=== PATIENT | female | born 1950 | race Two or more races ===

== ENCOUNTER 2023-12-04 13:04 | Emergency (ER) | payer OTHER ==
[~2023-12-04] VITALS: Ht 160 cm; Wt 78.2 kg
[2023-12-04 13:34] VITALS: BP 135/57; PULSE 71; RESP 16; O2SAT 94
[2023-12-04] MEDS ORDERED: TELM80TA PO (13:55)
== END 2023-12-04 14:19 | disposition home or self-care (01) ==
LOC: ER 13:04
DX: I10 Essential (primary) hypertension (principal); Z76.0 Encounter for issue of repeat prescription

== ENCOUNTER 2024-04-04 11:15 | Emergency (ER) | payer OTHER ==
[~2024-04-04] VITALS: Ht 154.9 cm; Wt 76.6 kg
[~2024-04-04 11:15] MED LIST: TELM80TA PO
--- NOTE | 2024-04-04 12:27 | ED.PDOC ---
Nisat. trauma (HPI) HPI Comments 73 y.o female presents to the ED for a chief complaint of left hand, head and neck pain s/p fall last night. Patient bent over to picking something off the ground, lost her balance and fell face forward. Patient reports she lost consciousness for a couple of seconds and woke up with left hand pain. Patient is unsure how she landed but did have nausea after getting herself back up. Patient has limited ROM to left hand and complains of soreness to her head radiating to neck. No vomiting, chest pain, SOB, dizziness, lightheadedness reported. Chief Complaint: Fall Injury Time Seen by MD: 12:20 Primary Care Provider: ? Reviewed notes: Nurses Notes, Medications, Allergies Allergies: Coded Allergies: NO KNOWN ALLERGIES (Unverified , 04/04/24) Home Meds Active Scripts Telmisartan (Micardis) 80 Mg Tab, 80 MG PO DAILY, #30 TAB Prov:CHADLUZ ELENA LUCERO 12/04/23 Information Source: Patient Mode of Arrival: Ambulatory Severity: Moderate Timing: Days (1) Duration: Since onset Location: (L) Hand, Head, Neck Location of laceration: None Mechanism: Fall Associated signs and symtoms: Headache Past Medical History PAST MEDICAL HISTORY: HTN Surgical History: Hysterectomy, Tubal Ligation PATIENT RELATIONS LIAISON History: Denies all PATIENT RELATIONS LIAISON Hx Family History Family History: Reviewed,noncontributory to illness Social History Smoker: Non-Smoker Alcohol: Denies ETOH Use Drugs: Denies Drug Use Lives In: Home Constitutional: denies: chills, diaphoresis, fatigue, fever, malaise, sweats, weakness, others EENTM: denies: blurred vision, double vision, ear bleeding, ear discharge, ear drainage, ear pain, ear ringing, eye pain, eye redness, hearing loss, mouth pain, mouth swelling, nasal discharge, nose bleeding, nose congestion, nose pain, photophobia, tearing, throat pain, throat swelling, voice changes, others Respiratory: denies: cough, hemoptysis, orthopnea, SOB at rest, shortness of breath, SOB with excertion, stridor, wheezing, others Cardiovascular: denies: chest pain, dizzy spells, diaphoresis, Dyspnea on exertion, edema, irregular heart beat, left arm pain, lightheadedness, palpitations, PND, syncope, others Gastrointestinal: denies: abdomen distended, abdominal pain, blood streaked bowels, constipated, diarrhea, dysphagia, difficulty swallowing, hematemesis, melena, nausea, poor appetite, poor fluid intake, rectal bleeding, rectal pain, vomiting, others Genitourinary: denies: abnormal vagina bleeding, burning, dyspareunia, dysuria, flank pain, frequency, hematuria, incontinence, pain, , vagina discharge, urgency, others Neurological: reports: headache; denies: dizziness, fainting, left sided numbness, left sided weakness, numbness, paresthesia, pre-existing deficit, right sided numbness, right sided weakness, seizure, speech problems, tingling, tremors, weakness, others Musculoskeletal: reports: neck pain, others (left hand pain ); denies: back pain, gout, joint pain, joint swelling, muscle pain, muscle stiffness Integumetry: denies: bruises, change in color, change in hair/nails, dryness, laceration, lesions, lumps, rash, wounds, others Allergic/Immunocompromised: denies: Difficulty Healing, Frequent Infections, Hives, Itching, others Hematologic/Lymphatic: denies: anemia, blood clots, easy bleeding, easy bruising, swollen glands, others Endocrine: denies: excessive hunger, excessive sweating, excessive thirst, excessive urination, flushing, intolerance to cold, intolerance to heat, unexplained weight gain, unexplained weight loss, others Psychiatric: denies: anxiety, bipolar disorder, depression, hopeless, panic disorder, schizophrenia, sleepless, suicidal, others All Other Systems: Reviewed and Negative Physical Exam General Appearance: No Apparent Distress HEENT: Normal ENT Inspection, Pharynx Normal, TMs Normal Neck: Full Range of Motion, Non-Tender, Normal, Normal Inspection Respiratory: Chest Non-Tender, Lungs Clear, No Accessory Muscle Use, No Respiratory Distress, Normal Breath Sounds Cardiovascular: No Edema, No JVD, No Murmur, No Gallop, Normal Peripheral Pulses, Regular Rate/Rhythm Breast Exam: Deferred Gastrointestinal: No Organomegaly, Non Tender, No Pulsatile Mass, Normal Bowel Sounds, Soft Genitalia: Deferred Pelvic: Deferred Rectal: Deferred Extremities: No calf tenderness, Normal capillary refill, No pedal edema, Other (Left hand with some mild tenderness) Musculoskeletal : Apperance: Normal Neurologic: Alert, 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 Was a procedure done?: No Differential Diagnosis Multiple Trauma: Closed Head Injury, Fractures, Contusion Neck Injury: Cervical Sprain, Cervical Strain X-Ray, Labs, Meds, VS Vital Signs Date Time Temp Pulse Resp B/P (MAP) Pulse Ox O2 Delivery O2 Flow Rate FiO2 04/04/24 12:14 98.1 71 18 139/71 (93) 97 CT scan of the head is negative for any fractures X-ray of the left hand is negative for any fracture The patient was being discharged and will follow up with the primary care doctor The patient will return to the emergency department's condition worsens. Images Reviewed?: Images reviewed and evaluated by me Time of 1ST Reevaluation: 12:23 Reevaluation 1ST: Unchanged Patient Education/Counseling: Diagnosis, Treatment, Prognosis, Need For Follow Up Family Education/Counseling: No Family Present Departure 1 Departure Time of Disposition: 13:19 Impression: Primary Impression: History of fall Additional Impressions: Contusion of left hand Qualified Codes: S60.222A - Contusion of left hand, initial encounter Blunt head trauma Qualified Codes: S09.8XXA - Other specified injuries of head, initial encounter Disposition: 01 HOME / SELF CARE / HOMELESS Condition: Fair Discharged With: Self Critical Care Note Critical Care Time?: No Stability Stability form required: No I personally scribed for SILVIA AN MD ([email or web address]) on 04/04/24 at 12:26. Electronically submitted by Shira Barrera ([facility]). SILVIA AN MD Apr 04, 2024 12:26
--- NOTE | 2024-04-04 12:53 | DVH ---
XY L HAND 3V XRAY, INDICATION: fall TECHNICAL DATA: Frontal, oblique and lateral views were obtained of the left hand. COMPARISON: None FINDINGS: No fracture is identified. Joint spaces are maintained. Alignment is anatomic. Soft tissues are withi n normal limits. IMPRESSION: No acute fracture or dislocation of the left hand.
--- NOTE | 2024-04-04 12:56 | DVH ---
EXAM: CT HEAD WITHOUT CONTRAST HISTORY: fall COMPARISON: None TECHNIQUE: Axial images were obtained and reformatted in coronal and sagittal planes. All CT scans at this medical facility are performed using dose modulation techniques as appropriate t o a performed exam including the following: Automated exposure control was utilized; adjustment of th e MA and/or KV according to patient size; and use of iterative reconstruction technique. CT Dose: CTDI volume is 55.03 mGy. Dose-length product is 882.21 mGy*cm FINDINGS: Supratentorial Region: No evidence for large acute territorial ischemia. No intracranial hemorrhage is noted. Posterior Fossa: No acute abnormality. Brainstem: Unremarkable. Sellar/Suprasellar Region: Unremarkable. Ventricles, Cisterns, Sulci: Age-appropriate. Orbits: Unremarkable. Paranasal Sinuses: Unremarkable. Mastoid Air Cells: Unremarkable. Vasculature: Unremarkable. Bones/Soft Tissues: No acute abnormality. Other: None. IMPRESSION: 1. No acute intracranial process.
[2024-04-04 13:15] VITALS: BP 137/58; PULSE 67; RESP 18; TEMP 98; O2SAT 97
== END 2024-04-04 13:12 | disposition home or self-care (01) ==
LOC: ER 11:25
DX: S60.222A Contusion of left hand, initial encounter (principal); S06.891A Other specified intracranial injury with loss of consciousness of 30 minutes or less, initial encounter; I10 Essential (primary) hypertension; Z90.710 Acquired absence of both cervix and uterus; Z98.890 Other specified postprocedural states; Z79.899 Other long term (current) drug therapy; W18.39XA Other fall on same level, initial encounter; Y93.89 Activity, other specified; Y92.89 Other specified places as the place of occurrence of the external cause; Y99.8 Other external cause status
CPT/HCPCS: 70450; 73130